=== PATIENT | female | born 1950 | race Caucasian/White ===

== ENCOUNTER 2024-02-27 10:05 | Emergency (ER) | payer BC ==
[~2024-02-27] VITALS: Ht 167.6 cm; Wt 70.0 kg
[2024-02-27 10:09] VITALS: TEMP 98.5; O2SAT 97
[2024-02-27] MEDS ORDERED: EMOL396C TP (10:12)
[2024-02-27 10:23] VITALS: BP 128/88; PULSE 78; RESP 16; O2SAT 99
[2024-02-27] MEDS ORDERED: TC1C15 TP (15:17)
[2024-02-29] MEDS ORDERED: PETR18JE3 TP (09:44)
== END 2024-02-27 10:44 | disposition home or self-care (01) ==
LOC: ER 10:40
DX: L30.9 Dermatitis, unspecified (principal); J45.909 Unspecified asthma, uncomplicated
CPT/HCPCS: 99283

== ENCOUNTER 2024-02-27 11:04 | Emergency (ER) | payer BC ==
[~2024-02-27] VITALS: Ht 182.9 cm; Wt 55.0 kg
[~2024-02-27 11:04] MED LIST: EMOL396C TP
[2024-02-27 11:09] VITALS: BP 141/76; PULSE 89; RESP 16; TEMP 98.6; O2SAT 99
[2024-02-27 13:27] LABS: BASOPHILS % 1.2 % (0.0-2.0); EOSINOPHILS % 1.5 % (0.0-5.0); HEMATOCRIT. 43.6 % (36.0-48.0); HEMOGLOBIN. 14.6 g/dL (12.0-16.0); LYMPHOCYTES % 28.9 % (20.0-50.0); MEAN CORPUSCULAR HEMOGLOBIN 32.2 pg (28.0-32.0); MEAN CORPUSCULAR HGB CONC 33.5 g/dL (31.0-37.0); MEAN CORPUSCULAR VOLUME 96.2 fL (81.0-99.0); MEAN PLATELET VOLUME 8.4 fl (7.4-10.4); NEUTROPHILS % 58.4 % (40.0-76.0); PLATELET 234 x1000/uL (130-400); RED BLOOD CELL COUNT 4.53 mill/uL (4.2-5.4); RED CELL DISTRIBUTION WIDTH 13.8 % (11.6-14.6); WHITE BLOOD COUNT 5.4 x1000/uL (4.5-11.0)
[2024-02-27 13:35] LABS: CARBON DIOXIDE 26 mEq/L (21-32); CHLORIDE 106 mEq/L (98-107); SODIUM 140 mEq/L (136-145)
[2024-02-27 13:36] LABS: CALCIUM 9.3 mg/dL (8.7-10.4)
[2024-02-27 13:41] LABS: CREATININE 0.7 mg/dL (0.6-1.0); GLUCOSE 87 mg/dL (70-105); UREA NITROGEN BLOOD 11 mg/dL (9-23)
[2024-02-27 13:43] LABS: ALANINE AMINOTRANSFERASE < 7 IU/L (10-49); ALBUMIN 4.2 g/dL (3.2-4.8); ASPARTATE AMINOTRANSFERASE 18 IU/L (<34); BILIRUBIN TOTAL 1.3 mg/dL (0.1-1.0)
[2024-02-27] MEDS ORDERED: TC1C15 TP (15:17)
[2024-02-29] MEDS ORDERED: PETR18JE3 TP (09:44)
== END 2024-02-27 15:46 | disposition home or self-care (01) ==
LOC: ER 11:04
DX: L30.9 Dermatitis, unspecified (principal); Z79.899 Other long term (current) drug therapy
CPT/HCPCS: 36415; 80053; 85025; 99283

== ENCOUNTER 2024-02-29 14:10 | Emergency (ER) | payer BC ==
[~2024-02-29] VITALS: Ht 172.7 cm; Wt 70.0 kg
[~2024-02-29 14:10] MED LIST changes: +PETR18JE3 TP; +TC1C15 TP
[2024-02-29 14:16] VITALS: O2SAT 99
[2024-02-29 14:45] VITALS: BP 151/71; PULSE 77; TEMP 98.1; O2SAT 97
[2024-02-29] MEDS: CYCLOBENZAPRINE 10MG TABLET PO ONE (18:22)
[2024-02-29 18:30] VITALS: RESP 16
== END 2024-02-29 20:56 | disposition home or self-care (01) ==
LOC: ER 14:10
DX: G89.29 Other chronic pain (principal); Z59.00 Homelessness unspecified; Z98.890 Other specified postprocedural states
CPT/HCPCS: 99283

== ENCOUNTER 2024-02-29 21:12 | Emergency (ER) | payer BC, MEDICAID ==
[~2024-02-29] VITALS: Ht 185.4 cm; Wt 56.1 kg
[2024-02-29 22:29] VITALS: O2SAT 98
[2024-03-01 04:45] VITALS: BP 128/86; PULSE 74; RESP 16; TEMP 36.94740; O2SAT 98
== END 2024-03-01 04:46 | disposition home or self-care (01) ==
LOC: ER 21:12
DX: T56.1X1A Toxic effect of mercury and its compounds, accidental (unintentional), initial encounter (principal); R21 Rash and other nonspecific skin eruption; Z98.890 Other specified postprocedural states; X58.XXXA Exposure to other specified factors, initial encounter
CPT/HCPCS: 99281